=== PATIENT | male | born 1950 | race Caucasian/White ===

== ENCOUNTER 2019-08-30 16:57 | Emergency (ER) | payer OTHER, MEDICARE ==
[2019-08-30 17:09] VITALS: BP 101/78; PULSE 61; TEMP 97.8; BMI 24.2
--- NOTE | 2019-08-30 17:18 | PDOC ---
Attending Attestation - Resident Resident Name: PrateekNaun boneie - HPI HPI: 09/02/19 07:16 Pt presents to the ED complaining of a one week history of L hand and wrist swelling and pain. History of RA. Denies fever or other systemic signs of infection. 09/02/19 07:16 - Physicial Exam PE: 09/02/19 07:18 Agree with resident exam. L hand is slightly swollen, tender, and very mildly erythematous. Full active ROM at wrist and all MCP joints. Redness does not extend into the forearm or past the MCP joint. - Medical Decision Making 09/02/19 07:20 Pt presents to the ED complaining of L hand redness and swelling. Denies other complaints. No systemic signs of infection. Differential includes Gout, RA, less likely infection. However, given that cellulitis is difficult to rule out , will start on antibiotics. Given that gout vs RA is more likely, will treat with NSAIDS.
[2019-08-30] MEDS ORDERED: ACETAMINOPHEN 1000 MG/100 ML VIAL (NON FORMULARY) IVPB ONE (17:22)
--- NOTE | 2019-08-30 17:32 | PDOC ---
History of Present Illness - History of Present Illness Initial Comments: 08/30/19 18:17 69 year old man with a history of RA on methotrexate, humira, folic acid, vit b12 who presents with L wrist and hand swelling, pain and slight erythema for over 1 week. 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 He denies any fevers. He had an Xray done with [facility] who thought it looked more consistent with arthritic changes, however his RA doctor thought it was more concerning for infection and told him to come to the ED. ROS GENERAL/CONSTITUTIONAL: No fever or chills. No weakness. HEAD, EYES, EARS, NOSE AND THROAT: No change in vision. No ear pain or discharge. No sore throat. CARDIOVASCULAR: No chest pain or shortness of breath RESPIRATORY: No cough, wheezing, or hemoptysis. GASTROINTESTINAL: No nausea, vomiting, diarrhea or constipation. GENITOURINARY: No dysuria, frequency, or change in urination. MUSCULOSKELETAL: + joint or muscle swelling or pain. No neck or back pain. PE GENERAL: Awake, alert, and fully oriented, in no acute distress HEAD: No signs of trauma, normocephalic, atraumatic EYES: EOMI, sclera anicteric, conjunctiva clear ENT: oropharynx clear without exudates. Moist mucosa NECK: Normal ROM, supple, LUNGS: No distress, speaks full sentences, clear to auscultation bilaterally HEART: Regular rate and rhythm, normal S1 and S2, no murmurs, rubs or gallops, peripheral pulses normal and equal bilaterally. ABDOMEN: Soft, nontender, normoactive bowel sounds. No guarding, no rebound. No masses EXTREMITIES : + L hand swelling, erythema, slight warmth, exquisit tenderness to the L wrist to palpation, FROM of the wrist NEUROLOGICAL: Cranial nerves II through XII grossly intact. Normal speech, normal gait, no focal sensorimotor deficits SKIN: Warm, Dry, normal turgor, no rashes or lesions noted MDM DDX including but not limited to: cellulitis vs RA vs gout W/U: - cbc, cmp, esr, crp, xr TX: - tylenol, kelflex, ibuprofen ED Course: labs wnl pcp f/u with rhuem referral Brittney Morin, PGY2 Emergency Medicine <Brittney Morin - Last Filed: 08/30/19 19:01> <Delmis Leslie - Last Filed: 08/30/19 20:50> - General Chief Complaint: Redness To Affected Area Stated Complaint: LEFT HAND PAIN, SWELLING, REDNESS Time Seen by Provider: 08/30/19 17:08 Past History - Past Medical History COPD: No Other medical history: RHEUMATOID ARTHRITIS - Surgical History Appendectomy: Yes - Psycho Social/Smoking Cessation Hx Smoking History: Never smoked Have you smoked in the past 12 months: No Number of Cigarettes Smoked Daily: 0 Information on smoking cessation initiated: No Hx Alcohol Use: No Substance Use Type: None <Brittney Morin - Last Filed: 08/30/19 19:01> <Delmis Leslie - Last Filed: 08/30/19 20:50> - Past Medical History Allergies/Adverse Reactions: Allergies Allergy/AdvReac Type Severity Reaction Status Date / Time No Known Allergies Allergy Verified 08/30/19 17:02 Home Medications: Ambulatory Orders Adalimumab [Humira(Cf) Pen] 40 mg IJ ASDIR 08/30/19 Cephalexin Monohydrate [Keflex -] 500 mg PO Q6H 7 Days #28 capsule 08/30/19 Cyanocobalamin (Vitamin B-12) [Vitamin B12] 1,000 mcg SL DAILY 08/30/19 Diclofenac Sodium [Voltaren] 1 applic TP QID PRN 08/30/19 Folic Acid 1 mg PO DAILY 08/30/19 Methotrexate Sodium [Methotrexate] 20 mg PO WEEKLY 08/30/19 *Physical Exam - Vital Signs Last Vital Signs Temp Pulse Resp BP Pulse Ox 97.8 F 61 18 101/78 100 08/30/19 16:57 08/30/19 16:57 08/30/19 16:57 08/30/19 16:57 08/30/19 16:57 <Brittney Morin - Last Filed: 08/30/19 19:01> - Vital Signs Last Vital Signs Temp Pulse Resp BP Pulse Ox 97.8 F 61 18 101/78 100 08/30/19 16:57 08/30/19 16:57 08/30/19 16:57 08/30/19 16:57 08/30/19 16:57 <Delmis Leslie - Last Filed: 08/30/19 20:50> ED Treatment Course - LABORATORY CBC & Chemistry Diagram: 08/30/19 17:30 08/30/19 17:30 - RADIOLOGY Radiology Studies Ordered: Category Date Time Status HAND- LEFT [RAD] Stat Radiology 08/30/19 17:21 Ordered <Brittney Morin - Last Filed: 08/30/19 19:01> - LABORATORY CBC & Chemistry Diagram: 08/30/19 17:30 08/30/19 17:30 - ADDITIONAL ORDERS Additional order review: Laboratory Results 08/30/19 17:30 Sodium 138 Potassium 4.2 Chloride 106 Carbon Dioxide 24 Anion Gap 8 BUN 20.0 H Creatinine 1.1 Est GFR (CKD-EPI)AfAm 78.97 Est GFR (CKD-EPI)NonAf 68.13 Random Glucose 118 H Calcium 8.7 Total Bilirubin 0.7 AST 25 ALT 26 Alkaline Phosphatase 43 L Total Protein 5.8 L Albumin 3.6 08/30/19 17:30 RBC 4.17 MCV 89.4 MCHC 33.8 RDW 14.5 MPV 9.5 Neutrophils % 71.6 D Lymphocytes % 17.3 D Monocytes % 7.2 Eosinophils % 2.9 Basophils % 1.0 - Medications Given in the ED: ED Medications Discontinued Medications Generic Name Dose Route Start Last Admin Trade Name [employer] PRN Reason Stop Dose Admin Acetaminophen 1,000 mg 08/30/19 17:22 08/30/19 17:43 Ofirmev Injection - IVPB 08/30/19 17:23 1,000 mg ONCE ONE Administration Cephalexin 500 mg 08/30/19 18:18 08/30/19 18:36 Keflex Oral Suspension - PO 08/30/19 18:19 Not Given ONCE ONE Cephalexin HCl 500 mg 08/30/19 18:27 08/30/19 18:36 Keflex - PO 08/30/19 18:28 500 mg ONCE ONE Administration Ibuprofen 800 mg 08/30/19 18:50 08/30/19 19:05 Caldolor Injection - IVPB 08/30/19 18:51 800 mg ONCE ONE Administration <Delmis Leslie - Last Filed: 08/30/19 20:50> Discharge - Discharge Information Problems reviewed: Yes - Admission No <Brittney Morin - Last Filed: 08/30/19 19:01> - Discharge Information Problems reviewed: Yes <Delmis Leslie - Last Filed: 08/30/19 20:50> - Discharge Information Clinical Impression/Diagnosis: Wrist pain Cellulitis Qualifiers: Site of cellulitis: extremity Site of cellulitis of extremity: upper extremity Condition: Stable Disposition: HOME - Additional Discharge Information Prescriptions: Cephalexin Monohydrate [Keflex -] 500 mg PO Q6H 7 Days #28 capsule - Follow up/Referral Referrals: Rasta Turpin [Primary Care Provider] - - Patient Discharge Instructions Patient Printed Discharge Instructions: DI for Cellulitis -- Adult, DI for Gout Additional Instructions: Continue elevation of left wrist as much as possible Continue Keflex as prescribed Continue other medications for your rheumatoid arthritis as previously Return to ER immediately if swelling/redness/pain worsens or you develop fever/ red streaking Follow-up with your general doctor on the next business day - Post Discharge Activity
[2019-08-30] MEDS ORDERED: ACETAMINOPHEN INJECTION 100 ML IVPB ONE (17:39)
[2019-08-30 17:55] LABS: EOS % 2.9 % (0-4.5); HEMATOCRIT 37.3 % (35.4-49); HEMOGLOBIN 12.6 GM/dl (11.7-16.9); LYMPH % 17.3 % (8-40); MCH 30.2 pg (25.7-33.7); MCHC 33.8 g/dl (32.0-35.9); MEAN CELL VOLUME 89.4 fl (80-96); MEAN PLT VOLUME 9.5 fl (7.5-11.1); MONO % 7.2 % (3.8-10.2); NEUT % 71.6 % (42.8-82.8); PLATELET COUNT 174 K/MM3 (134-434); RBC 4.17 M/mm3 (4.00-5.60); RDW 14.5 % (11.9-15.9); WHITE BLOOD COUNT 5.5 K/mm3 (4.0-10.8)
[2019-08-30 18:11] LABS: ALBUMIN 3.6 g/dl (3.4-5.0); BILIRUBIN,TOTAL 0.7 mg/dl (0.2-1); CALCIUM 8.7 mg/dl (8.5-10); CREATININE 1.1 mg/dl (0.55-1.3); TOT PROT 5.8 g/dl (6.4-8.2)
[2019-08-30] MEDS ORDERED: CEPHALEXIN 250 MG/5 ML ORAL SUSPENSION PO ONE (18:18)
[2019-08-30] MEDS ORDERED: CEPHALEXIN MONOHYDRATE 500 MG CAPSULE (UD) PO ONE (18:27)
[2019-08-30 18:34] LABS: POTASSIUM 4.2 mmol/L (3.5-5.1)
[2019-08-30] MEDS ORDERED: CEPHALEXIN MONOHYDRATE 500 MG CAPSULE (UD) ONE (18:34)
[2019-08-30] MEDS ORDERED: IBUPROFEN 800 MG/8 ML IJ IVPB ONE ×3 (18:50→19:04)
--- NOTE | 2019-08-30 20:45 | PDOC ---
*Physical Exam - Vital Signs Last Vital Signs Temp Pulse Resp BP Pulse Ox 97.8 F 61 18 101/78 100 08/30/19 16:57 08/30/19 16:57 08/30/19 16:57 08/30/19 16:57 08/30/19 16:57 ED Treatment Course - LABORATORY CBC & Chemistry Diagram: 08/30/19 17:30 08/30/19 17:30 - ADDITIONAL ORDERS Additional order review: Laboratory Results 08/30/19 17:30 Sodium 138 Potassium 4.2 Chloride 106 Carbon Dioxide 24 Anion Gap 8 BUN 20.0 H Creatinine 1.1 Est GFR (CKD-EPI)AfAm 78.97 Est GFR (CKD-EPI)NonAf 68.13 Random Glucose 118 H Calcium 8.7 Total Bilirubin 0.7 AST 25 ALT 26 Alkaline Phosphatase 43 L Total Protein 5.8 L Albumin 3.6 08/30/19 17:30 RBC 4.17 MCV 89.4 MCHC 33.8 RDW 14.5 MPV 9.5 Neutrophils % 71.6 D Lymphocytes % 17.3 D Monocytes % 7.2 Eosinophils % 2.9 Basophils % 1.0 - Medications Given in the ED: ED Medications Discontinued Medications Generic Name Dose Route Start Last Admin Trade Name Freq PRN Reason Stop Dose Admin Acetaminophen 1,000 mg 08/30/19 17:22 08/30/19 17:43 Ofirmev Injection - IVPB 08/30/19 17:23 1,000 mg ONCE ONE Administration Cephalexin 500 mg 08/30/19 18:18 08/30/19 18:36 Keflex Oral Suspension - PO 08/30/19 18:19 Not Given ONCE ONE Cephalexin HCl 500 mg 08/30/19 18:27 08/30/19 18:36 Keflex - PO 08/30/19 18:28 500 mg ONCE ONE Administration Ibuprofen 800 mg 08/30/19 18:50 08/30/19 19:05 Caldolor Injection - IVPB 08/30/19 18:51 800 mg ONCE ONE Administration ED Progress Note - Progress Note Progress Note: 08/30/19 20:51 Care of this patient received from Dr. Sandoval Left wrist x-ray performed and reviewed by Dr. Salinas of the radiology staff: No radiographic evidence of fracture. Multifocal arthritic changes are seen. No other evidence of acute pathology present. Results discussed with the patient. He will continue Keflex as prescribed and follow-up with his doctor on the next business day. He will return to the emergency room if he has worsening pain/swelling/redness of the left hand/wrist area or if he develops lymphangitic streaking/fever or chills Discharge - Discharge Information Problems reviewed: Yes Clinical Impression/Diagnosis: Wrist pain Cellulitis Qualifiers: Site of cellulitis: extremity Site of cellulitis of extremity: upper extremity Condition: Stable Disposition: HOME - Additional Discharge Information Prescriptions: Cephalexin Monohydrate [Keflex -] 500 mg PO Q6H 7 Days #28 capsule - Follow up/Referral Referrals: Rasta Turpin [Primary Care Provider] - - Patient Discharge Instructions Patient Printed Discharge Instructions: DI for Cellulitis -- Adult, DI for Gout Additional Instructions: Continue elevation of left wrist as much as possible Continue Keflex as prescribed Continue other medications for your rheumatoid arthritis as previously Return to ER immediately if swelling/redness/pain worsens or you develop fever/ red streaking Follow-up with your general doctor on the next business day - Post Discharge Activity
== END 2019-08-30 21:02 | disposition home or self-care (01) ==
LOC: FER 16:57
PROC: 3E033NZ Introduction of Analgesics, Hypnotics, Sedatives into Peripheral Vein, Percutaneous Approach (ICD-10-PCS; principal; 2019-08-30)
DX: L03.114 Cellulitis of left upper limb (principal); M25.532 Pain in left wrist; M06.9 Rheumatoid arthritis, unspecified
CPT/HCPCS: 36415; 73130-TC-LT-FY; 80053; 85025; 96374; 96375; 99284-25; J0131

== ENCOUNTER 2019-09-01 08:14 | Emergency (ER) | payer OTHER, MEDICARE ==
[2019-09-01 08:22] VITALS: BP 129/74; PULSE 61; TEMP 98.1; BMI 24.2
--- NOTE | 2019-09-01 08:26 | PDOC ---
History of Present Illness - General Chief Complaint: Redness To Affected Area Stated Complaint: left hand swelling not improving Time Seen by Provider: 09/01/19 08:17 - History of Present Illness Initial Comments: 09/01/19 08:47 69yo male with hx of RA on methotrexate and humira presents for re-eval of L hand swelling and wrist redness. Pt states the swelling and redness started on Monday. 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 Pt states he saw his PMD on Monday , then saw the PA the next day. Pt states taking ibuprofen at home and still with swelling and pain so monday was seen in the ED. Pt states he had labs that did not show an elevated wbc and an xray at that time. Pt states he was sent home with keflex which he took 4 doses of yesterday and then again this AM without improvement of the pain or the swelling. Pt denies f/c. Denies worsening of the redness or spread of the redness. Denies worsening of the swelling, but states it has not improved. Pt denies cp/sob. No abd pain. No n/v/ d. No dysuria. Pt arrived ambulatory with a steady gait. Pmhx: ra pshx: appy all: nkda Is this a multiple visit Asthma Patient?: No Past History - Past Medical History Allergies/Adverse Reactions: Allergies Allergy/AdvReac Type Severity Reaction Status Date / Time No Known Allergies Allergy Verified 09/01/19 08:14 Home Medications: Ambulatory Orders Adalimumab [Humira(Cf) Pen] 40 mg IJ ASDIR 08/30/19 Cephalexin Monohydrate [Keflex -] 500 mg PO Q6H 7 Days #28 capsule 08/30/19 Cyanocobalamin (Vitamin B-12) [Vitamin B12] 1,000 mcg SL DAILY 08/30/19 Diclofenac Sodium [Voltaren] 1 applic TP QID PRN 08/30/19 Folic Acid 1 mg PO DAILY 08/30/19 Methotrexate Sodium [Methotrexate] 20 mg PO WEEKLY 08/30/19 Sulfamethoxazole/Trimethoprim [Bactrim Ds Tablet] 1 each PO BID #20 tablet 09/01 COPD: No Other medical history: ra - Surgical History Appendectomy: Yes - Immunization History Immunization Up to Date: Yes - Psycho Social/Smoking Cessation Hx Smoking History: Never smoked Have you smoked in the past 12 months: No Number of Cigarettes Smoked Daily: 0 Information on smoking cessation initiated: No Hx Alcohol Use: No Drug/Substance Use Hx: No Substance Use Type: None Review of Systems - Review of Systems Able to Perform ROS?: Yes Is the patient limited Chinese proficient: No Constitutional: No: Chills, Fever HEENTM: No: Nose Pain, Throat Pain Respiratory: No: Cough, Shortness of Breath Cardiac (ROS): No: Chest Pain ABD/GI: No: Diarrhea, Nausea, Vomiting, Abdominal cramping : No: Burning, Dysuria Musculoskeletal: No: Back Pain Integumentary: Yes: Erythema (lateral left wrist), Other (swelling L hand and wrist) Neurological: No: Headache, Numbness, Paresthesia All Other Systems: Reviewed and Negative *Physical Exam - Vital Signs Last Vital Signs Temp Pulse Resp BP Pulse Ox 98.1 F 61 20 129/74 100 09/01/19 08:14 09/01/19 08:14 09/01/19 08:14 09/01/19 08:14 09/01/19 08:14 - Physical Exam General Appearance: Yes: Nourished, Appropriately Dressed. No: Apparent Distress HEENT: positive: EOMI Neck: positive: Supple Respiratory/Chest: positive: Lungs Clear, Normal Breath Sounds. negative: Respiratory Distress Cardiovascular: positive: Regular Rhythm, Regular Rate, S1, S2 Gastrointestinal/Abdominal: positive: Normal Bowel Sounds, Flat, Soft. negative : Guarding, Rebound, Tenderness Musculoskeletal: positive: Normal Inspection Extremity: positive: Normal Capillary Refill, Swelling (L hand and L wrist, redness to the L wrist without fluctuance or induration, pitting edema to hand, no lymphangitic spread, no crepitus, ttp over distal ulna at site of redness and warmth) Integumentary: positive: Dry, Swelling (L hand), Other (L dist wrist and ulna with redness and warmth) Neurologic: positive: Fully Oriented, Alert, Normal Response, Motor Strength 5/5 ED Treatment Course - LABORATORY CBC & Chemistry Diagram: 09/01/19 09:10 09/01/19 09:10 Medical Decision Making - Medical Decision Making 09/01/19 08:55 a/p: 69yo male with L hand swelling and wrist redness -concern for cellulitis vs worsening arthritis vs failed current abx therapy -will repeat labs, will repeat xray to eval bones and tissues -will give toradol -may need to broaden abx to bactrim, keflex vs iv abx -pt is nontoxic in appearance -stable vs -will monitor and reassess -rheum at [facility] 09/01/19 09:17 xray shows arthritic changes and swelling no air in the tissues 09/01/19 10:11 esr 2 no elevated wbc bactrim added discussed close follow up with Rheum at [facility] this week pt states he already emailed his rheum today most likely dc to home with bactrim and keflex 09/01/19 11:49 pt states feeling better crp pending pt stable for dc to home Discharge - Discharge Information Problems reviewed: Yes Clinical Impression/Diagnosis: Wrist pain, Cellulitis Condition: Stable Disposition: HOME - Admission No - Additional Discharge Information Prescriptions: Sulfamethoxazole/Trimethoprim [Bactrim Ds Tablet] 1 each PO BID #20 tablet - Follow up/Referral Referrals: Dr. Bryant [Other] - Patient Discharge Instructions Patient Printed Discharge Instructions: DI for Cellulitis -- Adult Additional Instructions: Please take all antibiotics as prescribed. Please take both the bactrim and the keflex. 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 please apply ice - 20 min on and 20 min off. Please keep the hand elevated. Please return to the ED with any further concerns or complaints. - Post Discharge Activity
[2019-09-01] MEDS ORDERED: KETOROLAC TROMETHAMINE 30 MG/1 ML VIAL IVPUSH ONE (08:39)
[2019-09-01] MEDS ORDERED: KETOROLAC TROMETHAMINE 30 MG/1 ML VIAL ONE (09:01)
[2019-09-01 09:18] LABS: BASO % 0.8 % (0-2.0); HEMATOCRIT 42.1 % (35.4-49); HEMOGLOBIN 13.3 GM/dl (11.7-16.9); LYMPH % 14.1 % (8-40); MCH 28.8 pg (25.7-33.7); MCHC 31.6 g/dl (32.0-35.9); MEAN CELL VOLUME 91.1 fl (80-96); MONO % 8.6 % (3.8-10.2); NEUT % 71.5 % (42.8-82.8); PLATELET COUNT 161 K/MM3 (134-434); RBC 4.62 M/mm3 (4.00-5.60); RDW 14.5 % (11.9-15.9); WHITE BLOOD COUNT 6.2 K/mm3 (4.0-10.8)
[2019-09-01] MEDS ORDERED: SULFAMETHOXAZOLE/TRIMETHOPRIM 800MG/160MG D.S. TABLET PO ONE (09:33)
[2019-09-01] MEDS ORDERED: SULFAMETHOXAZOLE/TRIMETHOPRIM 800MG/160MG D.S. TABLET ONE (09:41)
[2019-09-01 09:46] LABS: ALBUMIN 3.9 g/dl (3.4-5.0); ALK PHOS 37 U/L (45-117); ANION GAP 6 MMOL/L (8-16); BILIRUBIN,TOTAL 0.5 mg/dl (0.2-1); CALCIUM 9.2 mg/dl (8.5-10); CHLORIDE 107 mmol/L (98-107); CO2 26 mmol/L (21-32); GLUCOSE,RANDOM 95 mg/dl (74-106); POTASSIUM 5.1 mmol/L (3.5-5.1); SGOT/AST 24 U/L (15-37); SGPT/ALT 24 U/L (13-61); SODIUM 139 mmol/L (136-145); TOT PROT 6.2 g/dl (6.4-8.2)
== END 2019-09-01 12:01 | disposition home or self-care (01) ==
LOC: FER 08:14
PROC: 3E0333Z Introduction of Anti-inflammatory into Peripheral Vein, Percutaneous Approach (ICD-10-PCS; principal; 2019-09-01)
DX: L03.114 Cellulitis of left upper limb (principal); M25.532 Pain in left wrist; M06.9 Rheumatoid arthritis, unspecified
CPT/HCPCS: 36415; 73110-TC-LT-FY; 73130-TC-LT-FY; 80053; 85025; 85651; 86140; 99282-25